=== PATIENT | male | born 2000 | race Caucasian/White ===

== ENCOUNTER 2020-08-26 10:36 | Emergency (ER) | payer SELFPAY ==
[~2020-08-26] VITALS: Ht 185.4 cm; Wt 73.0 kg
[2020-08-26 11:12] VITALS: BP 136/81
[2020-08-26] MEDS ORDERED: normal saline 1000ML IV soln IVB ONE (12:45)
[2020-08-26] MEDS ORDERED: ketorolac tromethamine 15mg/ml inj. IV ONE (12:45)
[2020-08-26] MEDS ORDERED: diphenhydrAMINE 50 mg/ml inj IV ONE (12:45)
[2020-08-26] MEDS ORDERED: metoclopramide 5 mg/ml inj IV ONE (12:45)
[2020-08-26 13:32] LABS: BASOPHILS % (AUTO) 0.7 % (0-1); EOSINOPHILS % (AUTO) 0.4 % (0-6); HEMATOCRIT 50.9 % (42.0-52.0); HEMOGLOBIN 17.2 g/dl (14.0-17.9); LYMPHOCYTES # (AUTO) 4.1 X10'3 (1.1-4.8); LYMPHOCYTES % (AUTO) 61.4 % (21-51); MEAN CORPUSCULAR HEMOGLOBIN 30.4 PG (27.0-31.0); MEAN CORPUSCULAR HGB CONC 33.7 g/dL (33.0-36.5); MEAN CORPUSCULAR VOLUME 90.1 FL (78-98); MEAN PLATELET VOLUME 7.8 FL (7.4-10.4); MONOCYTES # (AUTO) 0.7 X10'3 (0-0.9); NEUTROPHILS # (AUTO) 1.8 X10'3 (1.8-7.7); NEUTROPHILS % (AUTO) 26.5 % (42-75); PLATELET COUNT 264 X10'3 (140-440); RED BLOOD COUNT 5.66 X10'6 (4.70-6.10); RED CELL DISTRIBUTION WIDTH 13.2 % (11.5-14.5); WHITE BLOOD COUNT 6.8 X10'3 (4.5-11.0)
[2020-08-26 13:44] LABS: ALANINE AMINOTRANSFERASE 251 U/L (12-78); ALBUMIN 3.8 G/DL (3.4-5.0); ALBUMIN/GLOBULIN RATIO 0.9 (1.1-1.5); ALKALINE PHOSPHATASE 86 IU/L (46-116); ANION GAP 7 (8-16); ASPARTATE AMINO TRANSFERASE 124 U/L (10-37); BILIRUBIN,TOTAL 0.6 MG/DL (0.1-1.0); BLOOD UREA NITROGEN 7 MG/DL (7-18); BUN/CREATININE RATIO 6.4 (5.4-32.0); CALCIUM 8.9 MG/DL (8.5-10.1); CHLORIDE 100 MMOL/L (99-107); GLUCOSE 105 MG/DL (70-104); POTASSIUM 4.9 MMOL/L (3.5-5.1); SODIUM 137 MMOL/L (135-145); TOTAL PROTEIN 8.1 G/DL (6.4-8.2); eGFR 84 ML/MIN
--- NOTE | 2020-08-26 14:17 | NUR ---
PT WANTS TO LEAVE, NO BEDS AVAILABLE, PROVIDER TO TALK WITH PT
[2020-08-26] MEDS ORDERED: ondansetron 4mg rapidly disintigrating tab PO ONE (14:20)
[2020-08-26] MEDS ORDERED: ibuprofen tablet 400 MG TABLET PO ONE (14:20)
[2020-08-26] MEDS ORDERED: IBUP-1986 PO (14:22)
[2020-08-26] MEDS ORDERED: ONDA4TAB6 PO (14:22)
[2020-08-26 14:46] LABS: TOTAL CELLS COUNTED 100
--- NOTE | 2020-08-26 14:46 | NUR ---
PT LEFT WITHOUT RECEIVING MEDICATIONS OR DC INSTRUCTIONS
[2020-08-26 14:47] LABS: PLATELET ESTIMATE NORMAL
== END 2020-08-26 14:48 | disposition home or self-care (01) ==
LOC: ER 10:37
DX: B34.9 Viral infection, unspecified (principal); Z20.822 Contact with and (suspected) exposure to COVID-19; R51.9 Headache, unspecified; R11.2 Nausea with vomiting, unspecified; Z79.899 Other long term (current) drug therapy
CPT/HCPCS: 36415; 80053; 85007; 85025; 87635; 99283; C9803